=== PATIENT | female | born 1930 | race Hispanic/Latino ===

== ENCOUNTER 2016-09-21 15:09 | Outpatient (CLI) | payer MEDICARE, OTHER ==
--- NOTE | 2016-09-22 07:46 | XRay Report ---
LUMBOSACRAL SPINE, 3 VIEWS: History: Chronic back pain Findings: Osteopenia is evident. There is a chronic compression deformity at T9 with 75% loss of height which is unchanged since the chest x-ray dated 04/06/16. No additional compression deformity is identified in the lumbar region. There is normal alignment of the spinal vertebra. Mild multilevel degenerative disc disease and facet arthropathy are noted. The sacrum and SI joints are grossly intact. Impression: Chronic T9 compression deformity. Please note the previous chest x-ray noted this was at T8 level which is incorrect. Osteopenia. Mild lumbar spondylosis. No acute lumbar process is appreciated.
== END 2016-09-21 15:10 | disposition home or self-care (01) ==
LOC: SPVIMAG 15:09
PROVIDERS: ATTEND Internal Medicine
DX: M47.896 Other spondylosis, lumbar region (principal); M85.88 Other specified disorders of bone density and structure, other site; M12.88 Other specific arthropathies, not elsewhere classified, other specified site; M51.37 Other intervertebral disc degeneration, lumbosacral region; M43.8X7 Other specified deforming dorsopathies, lumbosacral region
CPT/HCPCS: 72100